=== PATIENT | female | born 1970 | race Caucasian/White ===

== ENCOUNTER → 2017-07-24 | Outpatient (CLI) | payer BC ==
--- NOTE | 2017-07-24 12:37 | KCIC ---
EXAM: Lumbar spine MRI without contrast. HISTORY: Right lower extremity radiculopathy. TECHNIQUE: Multiplanar, multisequence magnetic resonance imaging of the lumbar spine was performed without contrast. COMPARISON: None. FINDINGS: There is grade 1 anterolisthesis of L4 on L5, measuring 3 mm. There is minimal lumbar scoliosis. The vertebral bodies are normal in height. There are few small endplate Schmorl's nodes. There is disc desiccation and decreased disc height with endplate osteophytosis L5-S1. The conus terminates at L1. At L1-L2 and L2-L3, there is no stenosis. At L3-L4, there is mild right facet arthropathy. There is no stenosis. At L4-L5, there is a left posterior lateral predominant disc bulge and endplate remodeling. There is mild left greater than right facet arthropathy. There is mild left greater than right foraminal stenosis with abutment of the exiting left L4 nerve root. At L5-S1, there is a right foraminal disc protrusion and left foraminal to lateral disc protrusion superimposed on a disc bulge and endplate remodeling. There is minimal facet arthropathy. There is [id number] left foraminal and minimal right foraminal stenosis with abutment of the exiting left L5 nerve root. IMPRESSION: 1. Multilevel degenerative change within the lumbar spine, described in detail above. This results in mild left greater than right foraminal stenosis and abutment of the exiting L4 nerve root at L4-L5 and mild to moderate left and minimal right foraminal stenosis with abutment of the exiting L5 nerve root at L5-S1. 2. Mild grade 1 anterolisthesis of L4 on L5 and minimal lumbar scoliosis. Electronically signed by: Alvina Rascon MD (07/24/2017 12:34 PM) [id number]
== END | disposition home or self-care (01) ==
LOC: KCIC MRI 11:24
DX: M48.061 Spinal stenosis, lumbar region without neurogenic claudication (principal); M54.17 Radiculopathy, lumbosacral region
CPT/HCPCS: 72148

== ENCOUNTER 2018-03-24 17:22 | Emergency (ER) | payer BC ==
[2018-03-24] MEDS: HYDROcodone/APAP 5/325MG 1 TAB TABLET PO (18:39)
[2018-03-24] MEDS ORDERED: ONDANSETRON ODT 4 MG TAB.RAPDIS. (18:42)
[2018-03-24] MEDS: ONDANSETRON ODT 4 MG TAB.RAPDIS. PO (18:45)
[2018-03-24 19:25] LABS: BILIRUBIN,URINE NEGATIVE (NEG); CLARITY,URINE CLEAR; COLOR,URINE YELLOW; GLUCOSE,URINE NEGATIVE (NEG); NITRITE,URINE NEGATIVE (NEG); PH,URINE 6.5; PROTEIN,URINE NEGATIVE (NEG-TRACE); UROBILINOGEN,URINE 0.2 mg/dL (0.2 mg/dL)
[2018-03-24 19:51] LABS: NEG OBC UR NEG; POS OBC UR POS; U PREG PATIENT NEGATIVE (NEG)
[2018-03-24 19:52] LABS: BACTERIA,URINE 0 /HPF (0-FEW); RBC,URINE OCC /HPF (0-2); SQUAMOUS EPITHELIAL CELL,UR MANY /LPF
[2018-03-24] MEDS: KETOROLAC 60 MG/2 ML INJ. IM (21:00)
== END 2018-03-24 21:00 | disposition home or self-care (01) ==
LOC: ER 21:00
DX: G89.29 Other chronic pain (principal); M54.5 Low back pain; N39.0 Urinary tract infection, site not specified
CPT/HCPCS: 72100; 72220; 81001; 81025; 87086; 96372; 99285; J1885; Q0162

== ENCOUNTER → 2018-04-08 | Outpatient (CLI) | payer BC | END | disposition home or self-care (01) | LOC: KCIC MRI 17:29 | DX: M43.16 Spondylolisthesis, lumbar region (principal); M51.37 Other intervertebral disc degeneration, lumbosacral region; M48.07 Spinal stenosis, lumbosacral region | CPT/HCPCS: 72148 ==

== ENCOUNTER → 2019-10-30 | Day surgery (SDC) | payer BC ==
[~2019-10-30] MED LIST: CYCL10TA2 PO; GALC120P SQ; HYDR-2761 PO; HYDR-3164 PO; IV RINGERS,LACTATED 1000ML 1,000 ML IV ONE; OMEP40CA45 PO; PHEN37.53 PO; PROPOFOL 40 ML IV ONE; RIZA10TA PO; SERT50TA PO; SULF1TAB24 PO
[2019-10-30 14:58] VITALS: BP 143/64
== END | disposition home or self-care (01) ==
LOC: SURG 13:26
PROVIDERS: ATTEND Internal Medicine Gastroenterology
DX: D50.9 Iron deficiency anemia, unspecified (principal); K64.0 First degree hemorrhoids; K63.89 Other specified diseases of intestine; K31.89 Other diseases of stomach and duodenum; K29.50 Unspecified chronic gastritis without bleeding; Z91.040 Latex allergy status; Z88.8 Allergy status to other drugs, medicaments and biological substances
CPT/HCPCS: 43235; 45378; 81025; J2704